=== PATIENT | female | born 1975 | race Caucasian/White ===

== ENCOUNTER 2016-11-11 18:02 | Emergency (ER) | payer BC ==
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
[2016-11-11] MEDS ORDERED: HYDROmorphone 1 MG/ML Syringe IM ONE (18:42)
[2016-11-11] MEDS ORDERED: Diphtheria,Pertussis(Acell),Tetanus Vaccine 0.5 ML Syringe IM ONE (20:01)
[2016-11-11 20:20] VITALS: BP 111/62
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
== END 2016-11-11 20:13 | disposition home or self-care (01) ==
LOC: MW.ED 18:02
DX: S82.141A Displaced bicondylar fracture of right tibia, initial encounter for closed fracture (principal); S80.219A Abrasion, unspecified knee, initial encounter; Z79.899 Other long term (current) drug therapy; Z88.0 Allergy status to penicillin; Z91.040 Latex allergy status; W17.89XA Other fall from one level to another, initial encounter; Z23 Encounter for immunization
CPT/HCPCS: 72170; 73562; 73590; 73700; 90471; 90715; 96374; 99284; G0390; J1170; 99281

== ENCOUNTER 2016-11-13 06:23 | Observation (INO) | payer BC ==
[2016-11-13] MEDS: Lactated Ringers 1,000 ML IV SCH ×2 (06:45→20:17)
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
[2016-11-13] MEDS ORDERED: Lidocaine 2% 5 ML SDV ONE (07:06)
[2016-11-13] MEDS ORDERED: Propofol 200 MG/20 ML SDV ONE (07:06)
[2016-11-13] MEDS ORDERED: Midazolam 1 MG/ML 2 ML SDV ONE (07:06)
[2016-11-13] MEDS ORDERED: fentaNYL 250 MCG/5 ML SDV ONE (07:06)
[2016-11-13] MEDS ORDERED: Ondansetron 4 MG/2 ML SDV ONE (07:06)
[2016-11-13] MEDS ORDERED: HYDROmorphone 2 MG/ML Syringe ONE (07:06)
[2016-11-13] MEDS ORDERED: Rocuronium 10 MG/ML 10 ML Syringe ONE (07:06)
[2016-11-13] MEDS ORDERED: Dexamethasone 4 MG/ML 5 ML MDV ONE (07:46)
[2016-11-13] MEDS ORDERED: diphenhydrAMINE 50 MG/ML SDV ONE (07:46)
[2016-11-13] MEDS ORDERED: Aluminum Hydroxide/Magnesium Hydroxide/Simethicone Susp 30 ML Cup PO PRN (08:23)
[2016-11-13] MEDS ORDERED: Ondansetron 4 MG/2 ML SDV IV PRN (08:23)
[2016-11-13] MEDS ORDERED: Ketorolac 30 MG/ML SDV IVPUSH PRN (08:23)
[2016-11-13] MEDS ORDERED: diphenhydrAMINE 25 MG Cap PO PRN (08:23)
[2016-11-13] MEDS ORDERED: Bisacodyl 10 MG Supp RECTAL PRN (08:23)
[2016-11-13] MEDS ORDERED: Albuterol 8 GM Inhaler INH PRN (08:25)
[2016-11-13] MEDS ORDERED: ePHEDrine 50 MG/ML SDV ONE (08:44)
[2016-11-13] MEDS ORDERED: Phenylephrine/Normal Saline 100 MCG/ML 10 ML Syringe ONE (08:44)
--- NOTE | 2016-11-13 10:42 | PCM.SN ---
- Free Text/Narrative Note: Pt appeared to have some Atrial Flutter on the monitor during the case. However , 12-lead performed in PACU shows NSR. Pt stable.
--- NOTE | 2016-11-13 10:49 | PCM.OPNOTE ---
- General Post-Op/Procedure Note Date of Surgery/Procedure: 11/13/16 Operative Procedure(s): ORIF R tibial plateau with bone graft Post-Op Diagnosis: R lateral tibial plateau fracture with diaphyseal extension Anesthesia Technique: General ET tube Primary Surgeon: Roseanna Abrams EBL in mLs: 50 Condition: Good Free Text/Narrative:: tt=84 min #[id number]
--- NOTE | 2016-11-13 11:13 | PCM.POSTAN ---
POST ANESTHESIA ASSESSMENT - MENTAL STATUS Mental Status: alert, oriented, somnolent (due to medication, but answering and responding to command and question) - RESPIRATORY Respiratory Status: respiratory rate WNL, airway patent, O2 saturation stable - CARDIOVASCULAR CV Status: pulse rate WNL, blood pressure stable - GASTROINTESTINAL GI Status: no symptoms - PAIN Pain Score: 5 (given fentanyl now) - POST OP HYDRATION Hydration Status: adequate & stable - OBSERVATIONS Free Text/Narrative:: To be monitored/observed for 24 hours - therefore to the floor.
[2016-11-13] MEDS: fentaNYL 100 MCG/2 ML SDV IVPUSH PRN ×2 (11:14→11:23)
[2016-11-13] MEDS ORDERED: Ketorolac 30 MG/ML SDV IVPUSH SCH (11:15)
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
--- NOTE | 2016-11-13 13:55 | CR ---
EXAMINATION: Right tibia HISTORY: ORIF COMPARISON: 11/11/2016 TECHNIQUE: 7 fluoroscopic images provided FINDINGS/IMPRESSION: There is screw and plate hardware fixating a comminuted proximal tibial plateau fracture. Overall the fragments appear in near-anatomic alignment. Bone graft material is noted.
[2016-11-13] MEDS: Docusate Sodium 100 MG Cap PO SCH ×2 (14:30→20:01)
[2016-11-13] MEDS: FLUoxetine 20 MG Cap PO SCH (14:30)
[2016-11-13] MEDS: Clindamycin Phosphate in D5W 600 MG in Premix Bag 50 BAG IV SCH ×8 (15:06→23:28)
[2016-11-13] MEDS: Morphine 10 MG/ML Syringe IVPUSH PRN ×3 (15:07→23:27)
[2016-11-13] MEDS: Acetaminophen/HYDROcodone 325-10 MG Tab PO PRN (16:09)
[2016-11-13] MEDS: Ketorolac 30 MG/ML SDV IVPUSH SCH (19:59)
[2016-11-14] MEDS: Acetaminophen/HYDROcodone 325-10 MG Tab PO PRN ×2 (00:07→08:10)
[2016-11-14] MEDS: Ketorolac 30 MG/ML SDV IVPUSH SCH ×2 (02:36→07:43)
[2016-11-14] MEDS: Morphine 10 MG/ML Syringe IVPUSH PRN (03:37)
[2016-11-14] MEDS: Lactated Ringers 1,000 ML IV SCH (07:46)
[2016-11-14] MEDS: FLUoxetine 20 MG Cap PO SCH (08:10)
[2016-11-14] MEDS: Docusate Sodium 100 MG Cap PO SCH (08:11)
--- NOTE | 2016-11-14 08:46 | PCM48HPAN ---
Post Anesthesia Note - EVALUATION WITHIN 48HRS OF ANESTHETIC Vital Signs in Normal Range: Yes Patient Participated in Evaluation: Yes Respiratory Function Stable: Yes Airway Patent: Yes Cardiovascular Function Stable: Yes Hydration Status Stable: Yes Pain Control Satisfactory: Yes Nausea and Vomiting Control Satisfactory: Yes Mental Status Recovered: Yes
[2016-11-14 09:19] VITALS: BP 99/58
--- NOTE | 2016-11-14 09:27 | PCM.SURGPN ---
- General Info Date of Service: 11/14/16 Date of Surgery/Procedure: 11/13/16 POD#: 1 Functional Status: Reports: pain controlled - Review of Systems General: Reports: No Symptoms Pulmonary: Denies: shortness of breath Cardiovascular: Denies: Chest Pain Gastrointestinal: Denies: Nausea Systems Review Comment:: pt resting comfortably in bed difficulty controlling pain overnight but better this AM has been OOB with crutches no specific concerns today - Patient Data Vitals - most recent: Last Vital Signs Temp 98.1 F 11/14/16 08:00 Pulse 68 11/14/16 08:00 Resp 16 11/14/16 08:00 BP 99/58 L 11/14/16 08:00 Pulse Ox 93 L 11/14/16 08:00 Weight - most recent: 64.86 kg I&O - last 24 hours: Intake & Output 11/13/16 11/14/16 11/14/16 22:59 06:59 14:59 Intake Total 1575 2040 Output Total 700 1500 Balance 875 540 Med Orders - Current: Current Medications Hydrocodone Bitart/Acetaminophen ([place] 325-10 Mg) 1 - 2 tab PO Q4H PRN PRN Reason: Pain Last Admin: 11/14/16 08:10 Dose: 2 tab Al Hydroxide/Mg Hydroxide (Mag-Al Plus) 30 ml PO Q4H PRN PRN Reason: indigestion Albuterol (Ventolin Hfa) 0 gm INH ASDIRECTED PRN PRN Reason: Dyspnea Bisacodyl (Dulcolax) 10 mg RECTAL DAILY PRN PRN Reason: Constipation Diphenhydramine HCl (Benadryl) 25 - 50 mg PO Q6H PRN PRN Reason: Itching Docusate Sodium (Colace) 100 mg PO BID [facility] Last Admin: 11/14/16 08:11 Dose: 100 mg Fentanyl (Sublimaze) 50 mcg IVPUSH .Q5MIN PRN PRN Reason: Pain Stop: 11/17/16 09:21 Last Admin: 11/13/16 11:23 Dose: 50 mcg Fluoxetine HCl (Prozac) 40 mg PO DAILY [facility] Last Admin: 11/14/16 08:10 Dose: 40 mg Clindamycin Phosphate 600 mg/ (Premix) 50 mls @ 100 mls/hr IV ONCALL [facility] Last Admin: 11/13/16 15:14 Dose: 100 mls/hr Lactated Ringer's (Ringers, Lactated) 1,000 mls @ 100 mls/hr IV ASDIRECTED [facility] Last Admin: 11/14/16 07:46 Dose: 100 mls/hr Ketorolac Tromethamine (Toradol) 30 mg IVPUSH Q6H [facility] Last Admin: 11/14/16 07:43 Dose: 30 mg Morphine Sulfate (Morphine) 1 - 3 mg IVPUSH Q3H PRN PRN Reason: Pain Last Admin: 11/14/16 03:37 Dose: 3 mg Ondansetron HCl (Zofran) 4 mg IV Q6HR PRN PRN Reason: NAUSEA/VOMITING Last Admin: 11/13/16 15:07 Dose: 4 mg Discontinued Medications Dexamethasone (Dexamethasone) Confirm Administered Dose 20 mg .ROUTE .STK-MED ONE Stop: 11/13/16 07:47 Diphenhydramine HCl (Benadryl) Confirm Administered Dose 50 mg .ROUTE .STK-MED ONE Stop: 11/13/16 07:47 Ephedrine Sulfate (Ephedrine Sulfate) Confirm Administered Dose 50 mg .ROUTE .STK-MED ONE Stop: 11/13/16 08:45 Fentanyl (Sublimaze) Confirm Administered Dose 250 mcg .ROUTE .STK-MED ONE Stop: 11/13/16 07:07 Hydromorphone HCl (Dilaudid) Confirm Administered Dose 2 mg .ROUTE .STK-MED ONE Stop: 11/13/16 07:07 Clindamycin Phosphate 600 mg/ (Premix) 50 mls @ 100 mls/hr IV Q8H [facility] Stop: 11/14/16 00:29 Last Admin: 11/13/16 23:28 Dose: 100 mls/hr Ketorolac Tromethamine (Toradol) 30 mg IVPUSH Q6H PRN PRN Reason: Pain Ketorolac Tromethamine (Toradol) 30 mg IVPUSH Q6H [facility] Last Admin: 11/13/16 14:25 Dose: 30 mg Lidocaine (Xylocaine-Mpf 2%) Confirm Administered Dose 5 ml .ROUTE .STK-MED ONE Stop: 11/13/16 07:07 Midazolam HCl (Versed 1 Mg/Ml) Confirm Administered Dose 2 mg .ROUTE .STK-MED ONE Stop: 11/13/16 07:07 Ondansetron HCl (Zofran) Confirm Administered Dose 4 mg .ROUTE .STK-MED ONE Stop: 11/13/16 07:07 Phenylephrine HCl (Phenylephrine In Ns 100 Mcg/Ml) Confirm Administered Dose 1 mg .ROUTE .STK-MED ONE Stop: 11/13/16 08:45 Propofol (Diprivan 20 Ml) Confirm Administered Dose 200 mg .ROUTE .STK-MED ONE Stop: 11/13/16 07:07 Rocuronium [place] (Zemuron) Confirm Administered Dose 100 mg .ROUTE .STK-MED ONE Stop: 11/13/16 07:07 - Exam Wound/Incisions: dressing dry and intact General: alert, oriented Cardiovascular: Regular Rate, Regular Rhythm Extremities: normal pulses, no calf tenderness, other (RLE - 1+ edema, at/ehl/ gastroc 5/5, dp 2+, sensation intact distally) Physical Findings Comment:: vss, afeb - Problem List Review Problem List Initiated/Reviewed/Updated: Yes - My Orders Last 24 Hours: Active Orders 24 hr Category Date Time Status Admission Status [Patient Status] [ADT] Routine ADT 11/13/16 11:40 Active EKG 12 Lead [EKG Documentation Completion] [RC] [facility] 11/13/16 09:20 Active Acetaminophen/HYDROcodone [[place] 325-10 MG] Med 11/13/16 09:00 Active 1 - 2 tab PO Q4H PRN Docusate Sodium [Colace] Med 11/13/16 09:00 Active 100 mg PO BID FLUoxetine [PROzac] Med 11/13/16 09:00 Active 40 mg PO DAILY Ketorolac [Toradol] Med 11/13/16 20:00 Active 30 mg IVPUSH Q6H Morphine Med 11/13/16 10:54 Active 1 - 3 mg IVPUSH Q3H PRN fentaNYL [Sublimaze] Med 11/13/16 09:20 Active 50 mcg IVPUSH .Q5MIN PRN Medication Orders Hydrocodone Bitart/Acetaminophen ([place] 325-10 Mg) 1 - 2 tab PO Q4H PRN PRN Reason: Pain Last Admin: 11/14/16 08:10 Dose: 2 tab Admin: 11/14/16 00:07 Dose: 2 tab Admin: 11/13/16 16:09 Dose: 2 tab Al Hydroxide/Mg Hydroxide (Mag-Al Plus) 30 ml PO Q4H PRN PRN Reason: indigestion Albuterol (Ventolin Hfa) 0 gm INH ASDIRECTED PRN PRN Reason: Dyspnea Bisacodyl (Dulcolax) 10 mg RECTAL DAILY PRN PRN Reason: Constipation Diphenhydramine HCl (Benadryl) 25 - 50 mg PO Q6H PRN PRN Reason: Itching Docusate Sodium (Colace) 100 mg PO BID [facility] Last Admin: 11/14/16 08:11 Dose: 100 mg Admin: 11/13/16 20:01 Dose: 100 mg Admin: 11/13/16 14:30 Dose: Fentanyl (Sublimaze) 50 mcg IVPUSH .Q5MIN PRN PRN Reason: Pain Stop: 11/17/16 09:21 Last Admin: 11/13/16 11:23 Dose: 50 mcg Admin: 11/13/16 11:14 Dose: 50 mcg Fluoxetine HCl (Prozac) 40 mg PO DAILY [facility] Last Admin: 11/14/16 08:10 Dose: 40 mg Admin: 11/13/16 14:30 Dose: Clindamycin Phosphate 600 mg/ (Premix) 50 mls @ 100 mls/hr IV ONCALL [facility] Last Admin: 11/13/16 15:14 Dose: 100 mls/hr Infusion: 11/13/16 15:14 Dose: 100 mls/hr Admin: 11/13/16 15:06 Dose: 100 mls/hr Lactated Ringer's (Ringers, Lactated) 1,000 mls @ 100 mls/hr IV ASDIRECTED [facility] Last Admin: 11/14/16 07:46 Dose: 100 mls/hr Infusion: 11/14/16 06:17 Dose: 100 mls/hr Admin: 11/13/16 20:17 Dose: 100 mls/hr Infusion: 11/13/16 16:45 Dose: 100 mls/hr Admin: 11/13/16 06:45 Dose: 100 mls/hr Ketorolac Tromethamine (Toradol) 30 mg IVPUSH Q6H [facility] Last Admin: 11/14/16 07:43 Dose: 30 mg Admin: 11/14/16 02:36 Dose: 30 mg Admin: 11/13/16 19:59 Dose: 30 mg Morphine Sulfate (Morphine) 1 - 3 mg IVPUSH Q3H PRN PRN Reason: Pain Last Admin: 11/14/16 03:37 Dose: 3 mg Admin: 11/13/16 23:27 Dose: 3 mg Admin: 11/13/16 19:17 Dose: 3 mg Admin: 11/13/16 15:07 Dose: 3 mg Ondansetron HCl (Zofran) 4 mg IV Q6HR PRN PRN Reason: NAUSEA/VOMITING Last Admin: 11/13/16 15:07 Dose: 4 mg - Assessment Assessment (Free Text/Narrative):: POD#1 ORIF R tib plateau - Plan Plan (Free Text/Narrative):: will d/ch to home today see d/ch instructions, meds
== END 2016-11-14 10:40 | disposition home or self-care (01) ==
LOC: MW.SDS 06:23 → MW.MS 11:40
PROVIDERS: ADMIT Orthopaedic Surgery; ATTEND Orthopaedic Surgery
PROC: 0QSG04Z Reposition Right Tibia with Internal Fixation Device, Open Approach (ICD-10-PCS; principal; 2016-11-13)
DX: S82.121A Displaced fracture of lateral condyle of right tibia, initial encounter for closed fracture (principal); S82.201A Unspecified fracture of shaft of right tibia, initial encounter for closed fracture; D64.9 Anemia, unspecified; F41.9 Anxiety disorder, unspecified; J45.909 Unspecified asthma, uncomplicated; K58.9 Irritable bowel syndrome, unspecified; F32.9 Major depressive disorder, single episode, unspecified; M79.7 Fibromyalgia; Z87.891 Personal history of nicotine dependence; Z87.442 Personal history of urinary calculi; Z88.0 Allergy status to penicillin; Z91.040 Latex allergy status; Z79.899 Other long term (current) drug therapy; Z98.51 Tubal ligation status; Z90.710 Acquired absence of both cervix and uterus; Z90.5 Acquired absence of kidney; Z90.89 Acquired absence of other organs
CPT/HCPCS: 27535; 76001; 93005; 97161; A9270; C1713; C1776; J1100; J1170; J1200; J1885; J2250; J2270; J2405; J3010; J7120; 01392; G0378; J2704

== ENCOUNTER → 2016-11-24 | Outpatient (CLI) | payer BC ==
--- NOTE | 2016-11-24 13:44 | CR ---
EXAMINATION: Right knee HISTORY: Fracture of the condyle COMPARISON: CT dated 11/11/2016 TECHNIQUE: AP and lateral views of the right knee. FINDINGS: There is screw and plate hardware fixating a tibial plateau and proximal tibial fracture i n near-anatomic alignment. There is a trace suprapatellar joint effusion. The remaining osseous stru ctures and joint spaces appear intact. Bone mineralization is otherwise normal. IMPRESSION: Stable hardware fixation of a proximal tibial fracture.
== END ==
LOC: MW.CHORTHO 07:43
PROVIDERS: ATTEND Physician Assistant
DX: S82.121A Displaced fracture of lateral condyle of right tibia, initial encounter for closed fracture (principal); Z96.7 Presence of other bone and tendon implants
CPT/HCPCS: 73560-26-RT; 73560-RT

== ENCOUNTER 2017-05-05 06:19 | Day surgery (SDC) | payer BC ==
[~2017-05-05 06:19] MED LIST: Lactated Ringers 1,000 ML IV SCH
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
[2017-05-05] MEDS ORDERED: Lidocaine 2% 5 ML SDV ONE (07:36)
[2017-05-05] MEDS ORDERED: Propofol 200 MG/20 ML SDV ONE (07:37)
[2017-05-05] MEDS ORDERED: fentaNYL 100 MCG/2 ML SDV ONE (07:37)
[2017-05-05] MEDS ORDERED: Midazolam 1 MG/ML 2 ML SDV ONE (07:37)
[2017-05-05] MEDS ORDERED: HYDROmorphone 2 MG/ML Syringe ONE (07:38)
[2017-05-05] MEDS ORDERED: Lidocaine 1% 20 ML MDV ONE (07:39)
[2017-05-05] MEDS ORDERED: Bupivacaine 25%/EPINEPHrine/PF 30 ML ONE (07:39)
[2017-05-05] MEDS ORDERED: Clindamycin Phosphate in D5W 600 MG in Premix Bag 1 BAG IV SCH ×2 (08:00)
[2017-05-05] MEDS ORDERED: Acetaminophen/HYDROcodone 325-5 MG Tab PO PRN (08:00)
[2017-05-05] MEDS ORDERED: ePHEDrine 50 MG/ML SDV ONE (08:45)
[2017-05-05] MEDS ORDERED: fentaNYL 100 MCG/2 ML SDV IVPUSH PRN (09:12)
[2017-05-05] MEDS ORDERED: HYDROmorphone 2 MG/ML Syringe IVPUSH ONE (09:14)
--- NOTE | 2017-05-05 09:43 | PCM.OPNOTE ---
- General Post-Op/Procedure Note Date of Surgery/Procedure: 05/05/17 Operative Procedure(s): 1. R knee arthroscopy with PMM. 2. HWR R proximal tibia Post-Op Diagnosis: 1. R knee medial meniscus tear. 2. Painful retained HW R tibia Anesthesia Technique: General ET Tube Primary Surgeon: Roseanna Abrams Commodities Clerk: Yola Ayers Commodities Clerk: Elijah Nix in mLs: 10 Condition: Good Free Text/Narrative:: tt=53 min #[id number]
--- NOTE | 2017-05-05 10:11 | PCM.POSTAN ---
POST ANESTHESIA ASSESSMENT - MENTAL STATUS Mental Status: Alert, Oriented - RESPIRATORY Respiratory Status: Respiratory Rate WNL, Airway Patent, O2 Saturation Stable - CARDIOVASCULAR CV Status: Pulse Rate WNL, Blood Pressure Stable - GASTROINTESTINAL GI Status: No Symptoms - POST OP HYDRATION Hydration Status: Adequate & Stable
[2017-05-05 13:24] VITALS: BP 110/65
--- NOTE | 2017-05-05 13:38 | OR ---
SURGEON: Roseanna Abrams MD DATE OF PROCEDURE: 05/05/2017 PREOPERATIVE DIAGNOSES: 1. Right knee pain. 2. Painful retained hardware, right proximal tibia, status post open reduction and internal fixation of right tibial plateau fracture. POSTOPERATIVE DIAGNOSES: 1. Right knee medial meniscus tear. 2. Degenerative joint disease, right knee. 3. Painful retained hardware, right proximal tibia. PROCEDURES: 1. Right knee arthroscopy with partial medial meniscectomy. 2. Hardware removal, right tibia, (deep implant). ASSISTANTS: 1. Yola Ayers PA-C. 2. Elijah Nix MD, PGY-2. ANESTHESIA: General. ESTIMATED BLOOD LOSS: 10 mL. TOURNIQUET TIME: 53 minutes. COMPLICATIONS: None. DVT PROPHYLAXIS: Not indicated. IMPLANTS USED: None. BRIEF HISTORY: Krzysztof is a 41-year-old female who sustained a right tibial plateau and tibial shaft fracture. She subsequently underwent open reduction and internal fixation. She went on to heal the fracture well, however, has continued to have some pain in her knee along with pain in the tibia from her retained hardware. Due to her lack of response to conservative treatment, I did recommend surgical intervention. The risks and goals of the procedure were discussed with the patient and were documented preoperatively. She agreed to proceed. DESCRIPTION OF PROCEDURE: The patient was properly identified and brought to the operating room. She was transferred from the OR cart and placed on the operating room table in a supine position. General anesthesia was administered. After adequate anesthesia was obtained, a well-padded tourniquet was applied to the right lower extremity. The right lower extremity was then prepped in standard fashion using ChloraPrep solution. It was then sterilely draped. A time-out was performed to ensure correct site and procedure. Preoperative antibiotics were given. The surgical site had been marked preoperatively. An Esmarch was used to exsanguinate the right lower extremity, and the tourniquet was inflated to 250 mmHg. A lateral portal arthrotomy was established. Blunt trocar and cannula were introduced into the suprapatellar pouch. Camera, inflow, and outflow were assembled. The suprapatellar pouch showed no signs of synovitis. The patellofemoral joint was then visualized. She had an area of chondromalacia along the lateral aspect of the patella. The trochlear groove showed no degenerative findings. The patella appeared to track centrally. I then extended down the lateral and medial gutter. No loose bodies were identified. I then entered the medial compartment. A medial portal arthrotomy was established. A probe was inserted. The meniscus was probed and found to have a degenerative tear along the central portion. This was resected with a combination of biters and shaver. The remainder of the joint surfaces appeared intact with no degenerative changes. I then entered the notch. Both the ACL and PCL were visualized and probed and found to be intact. I finally entered the lateral compartment. The site of the tibial plateau fracture was visualized. She did have some full-thickness fissures along the tibial plateau, however, overall, the joint surfaces appeared symmetric. The fissures were probed and appeared to be full thickness. A shaver was used to perform a chondroplasty to remove any loose fragments. The meniscus was probed and found to be intact. No degenerative changes were noted along the lateral femoral condyle. The patellofemoral joint was again visualized. The area of chondromalacia measured approximately 5 mm x 5 mm and no loose fragments were noted. Instruments were then removed from the knee. The portal sites were closed with 3-0 nylon. We then turned our attention to the tibial plateau. An incision was made over the site of the previous incision. The subcutaneous tissues were dissected down to the level of the plate. The screws and plate were removed without difficulty. The wound was then copiously irrigated with saline solution. The deep tissues were reapproximated with 0 Vicryl. The subcutaneous tissues were closed with 2-0 Vicryl. The skin was closed with gisela. 1% lidocaine was used to anesthetize the area. Xeroform gauze was placed over the wounds and a bulky dressing was applied. At the completion of the case, she was turned over to Dr. Eldridge for completion of her portion of the procedure. BRENNEN / CLAY /[id number]
--- NOTE | 2017-05-05 15:21 | CR ---
EXAMINATION: Right tibia and fibula HISTORY: Hardware removal COMPARISON: 10/08/2016 TECHNIQUE: 4 fluoroscopic images provided FINDINGS/IMPRESSION: Operative control films demonstrate removal of the previously demonstrated screw and plate hardware fixating the tibia.
--- NOTE | 2017-05-06 15:17 | PCM.OPNOTE ---
- General Post-Op/Procedure Note Date of Surgery/Procedure: 05/05/17 Operative Procedure(s): excision of left thumb mass 1cm2 Pre Op Diagnosis: left thumb mass Post-Op Diagnosis: Same Anesthesia Technique: General LMA, Local Primary Surgeon: Tierra Eldridge Stamp Redemption Clerk: Dana Covington Complications: None Condition: Good
--- NOTE | 2017-05-06 20:05 | OR ---
SURGEON: CARMEN GALLAGHER MD DATE OF PROCEDURE: 05/05/2017 PREOPERATIVE DIAGNOSIS: Left thumb mass. POSTOPERATIVE DIAGNOSIS: Left thumb mass. PROCEDURE: Excision of left thumb mass, 1 cm, extending down to the tendon area. BROOMCORN SCRAPER: DANYA Zarate. INDICATIONS: Ms. Trejo is a 41-year-old female with a left thumb mass that is growing and causing pain. It does impinge upon the digital nerve and cause problems. Risks and benefits of removal were discussed with her and she was in agreement to proceed. Risks were including, but not limited to, bleeding, infection, damage to underlying or overlying structures, possible need for future interventions, and possible scarring. PROCEDURE IN DETAIL: After informed consent was obtained and placed on the chart, and Dr. Abrams had completed her portion of the procedure, we entered and completed a time-out to confirm side and site. Attention was then paid to dissection of the left thumb. The arm was exsanguinated and tourniquet was insufflated to 200 mmHg. A curvilinear incision was made along the lateral margin of the thumb and dissection was carried circumferentially around the lesion itself, taking care to protect all surrounding structures. The lesion was exposed and the digital neurovascular bundle ran on top of this, it was preserved and retracted laterally. The lesion was excised en bloc and though it does have the appearance of the yellow fat of a giant cell, it does also has some calcifications and a bit atypical and that is why it was sent for pathology. Once adequately excised, the wound was hemostased and the skin was closed using a 5-0 nylon stitch in a horizontal mattress fashion. Local anesthetic was infiltrated into the area for pain control. The patient tolerated this well. All counts and needles were correct at the end of the case. FOLLOWUP INSTRUCTIONS: The patient will see us in clinic in 10 to 14 days or sooner if any problems, questions, or concerns. HEGGTHE / MODL /[id number]
== END 2017-05-05 12:35 | disposition home or self-care (01) ==
LOC: MW.SDS 06:19
PROVIDERS: ATTEND Plastic Surgery
DX: D48.1 Neoplasm of uncertain behavior of connective and other soft tissue (principal); M65.861 Other synovitis and tenosynovitis, right lower leg; M23.331 Other meniscus derangements, other medial meniscus, right knee; M22.41 Chondromalacia patellae, right knee; T84.84XA Pain due to internal orthopedic prosthetic devices, implants and grafts, initial encounter; M17.11 Unilateral primary osteoarthritis, right knee; F41.9 Anxiety disorder, unspecified; J45.909 Unspecified asthma, uncomplicated; K58.9 Irritable bowel syndrome, unspecified; G43.909 Migraine, unspecified, not intractable, without status migrainosus; F32.9 Major depressive disorder, single episode, unspecified; M79.7 Fibromyalgia; Z87.442 Personal history of urinary calculi; Z87.891 Personal history of nicotine dependence; Z88.0 Allergy status to penicillin; Z91.040 Latex allergy status; Z79.899 Other long term (current) drug therapy; Z98.51 Tubal ligation status; Z90.5 Acquired absence of kidney; Z90.710 Acquired absence of both cervix and uterus; Z90.89 Acquired absence of other organs; Z98.890 Other specified postprocedural states
CPT/HCPCS: 20680; 26116; 29881; 76000; 88300; 88304; 88305; A9270; J1170; J2250; J3010; J7120; 01400; J2704

== ENCOUNTER 2020-10-17 11:47 | Day surgery (SDC) | payer BC ==
[2020-10-17] MEDS ORDERED: Betamethasone Acetate/Betamethasone Sod Phosphate 30 MG/5 ML MDV EPIDUR ONE (13:00)
[2020-10-17] MEDS ORDERED: Lidocaine 2% 5 ML SDV INJECT ONE (13:00)
[2020-10-17] MEDS ORDERED: Ropivacaine 0.5% 5 MG/ML 30 ML SDV INJECT ONE (13:00)
[2020-10-17] MEDS ORDERED: Iopamidol 200-M 10 ML vial ITHECAL ONE (13:00)
--- NOTE | 2020-10-17 21:10 | OR ---
SURGEON: Alethea Driscoll D.O. DATE OF PROCEDURE: 10/17/2020 PRIMARY SURGEON: Alethea Driscoll D.O. DIRECTOR OF STRATEGIC PROGRAMS: OR staff present: 1. Segun Dixon RN. 2. Segun Snider RT. 3. Pauline Law RN. WOUND CLASS: I. PREOPERATIVE DIAGNOSES: 1. Lumbar degenerative disk disease, L4-L5, L5-S1. 2. L4-L5-S1 radiculopathy. 3. Lumbar spondylosis. 4. Chronic low back pain. POSTOPERATIVE DIAGNOSES: 1. Lumbar degenerative disk disease, L4-L5, L5-S1. 2. L4-L5-S1 radiculopathy. 3. Lumbar spondylosis. 4. Chronic low back pain. PROCEDURES PERFORMED: 1. Right S1 transforaminal epidural steroid injection. 2. Fluoroscopic guidance for needle placement. 3. Local with oral Valium for sedation. SCREENING QUESTIONS: The patient answered "no" to all of the following questions: 1. Are you allergic to iodine, Betadine or latex? 2. Do you have a bleeding disorder? 3. Do you have any joint replacements, heart valve replacements, or a pacemaker? 4. Are you allergic to anti-inflammatories or blood thinners? 5. Do you have any current local or systemic infections? DESCRIPTION OF PROCEDURE: The patient had the procedure thoroughly explained including risks, benefits and alternatives. Consent was signed in my clinic indicating understanding and willingness to proceed. The patient presented to [facility] [place] where the patient was escorted to the dressing room to disrobe and change into a hospital gown. Preoperative vital signs were taken and stable. The patient reported that Valium was taken prior to the procedure. The patient was brought to the procedure room and placed in the prone position on the table. A pillow was placed under the abdomen in order to flatten the lumbar lordosis. The back was prepped with ChloraPrep and sterilely draped. All personnel in the operating room were dressed in appropriate attire including surgical scrubs, head and shoe covers. This was to ensure sterility while in the treatment room. During the time fluoroscopy was in use, all personnel in the operating room wore lead durbin with thyroid collars. Sterile technique was used during the procedure. The fluoroscope was placed for the right S1 transforaminal epidural steroid injection. There was no sign of infection at the skin site for needle insertion. The skin was anesthetized with 2% lidocaine with a 27 gauge 1-1/2 inch needle. Then a 22 gauge 3-1/2 inch spinal needle, advanced to the right S1 lateral foramen. Under direct fluoroscopic guidance needle position was verified in three views; AP, oblique and lateral, with 0.2 cubic centimeters increments of Isovue- 200 dye and adequate flow up to the L4-5 epidural space. No intravascular flow pattern was observed under live fluoroscopy. Then 12 milligrams of Celestone and local was slowly injected after negative aspiration of heme, cerebrospinal fluid and no paresthesias were noted. The needle was cleared prior to removal from the skin. No adverse reactions were noted. The patient was brought to the recovery room awake and in good condition by my staff. The patient was monitored and discharge instructions were given after a brief stay in the recovery area. Both oral and written discharge and follow up instructions were given. The patient will follow up in the clinic in 3-4 weeks post procedure to evaluate the efficacy. The patient verbalized understanding including understanding of those signs and symptoms that would require emergency care and knows how to contact the office if there are any problems or questions in the meantime. PREOPERATIVE PAIN: 8 out of 10. POSTOPERATIVE PAIN: 6/10. PLAN: Followup in the pain clinic in 1 month. KATHLEEN / CLAY /[id number]
== END 2020-10-17 14:02 | disposition home or self-care (01) ==
LOC: MW.SDS 11:47
PROVIDERS: ATTEND Anesthesiology
DX: G89.29 Other chronic pain (principal); M51.16 Intervertebral disc disorders with radiculopathy, lumbar region; M51.17 Intervertebral disc disorders with radiculopathy, lumbosacral region; M47.26 Other spondylosis with radiculopathy, lumbar region; M51.34 Other intervertebral disc degeneration, thoracic region; J45.909 Unspecified asthma, uncomplicated; Z88.0 Allergy status to penicillin; Z91.040 Latex allergy status; Z79.899 Other long term (current) drug therapy; Z98.890 Other specified postprocedural states; Z87.891 Personal history of nicotine dependence

== ENCOUNTER 2020-11-14 12:52 | Day surgery (SDC) | payer BC ==
[2020-11-14] MEDS ORDERED: Iopamidol 200-M 10 ML vial ITHECAL ONE (13:00)
[2020-11-14] MEDS ORDERED: Ropivacaine 0.5% 5 MG/ML 30 ML SDV INJECT ONE (13:00)
[2020-11-14] MEDS ORDERED: Lidocaine 2% 5 ML SDV INJECT ONE (13:00)
[2020-11-14] MEDS ORDERED: Betamethasone Acetate/Betamethasone Sod Phosphate 30 MG/5 ML MDV EPIDUR ONE (13:00)
--- NOTE | 2020-11-14 23:00 | OR ---
SURGEON: Alethea Driscoll D.O. DATE OF PROCEDURE: 11/14/2020 PRIMARY SURGEON: Alethea Driscoll D.O. FARM TRACTOR OPERATOR: OR staff present: 1. David Parker RN. 2. Dina Palma RN. 3. Segun Snider RT. WOUND CLASS: I. PREOPERATIVE DIAGNOSES: 1. Lumbar herniated disk, L4-5, L5-S1. 2. Chronic low back pain with right L5-S1 radiculopathy. POSTOPERATIVE DIAGNOSES: 1. Lumbar herniated disk, L4-5, L5-S1. 2. Chronic low back pain with right L5-S1 radiculopathy. PROCEDURES PERFORMED: 1. Right L4 transforaminal epidural steroid injection. 2. Right L5 transforaminal epidural steroid injection. 3. Fluoroscopic guidance for needle placement. 4. Local with oral Valium for sedation. SCREENING QUESTIONS: The patient answered "no" to all of the following questions: 1. Are you allergic to iodine, Betadine or latex? 2. Do you have a bleeding disorder? 3. Do you have any joint replacements, heart valve replacements, or a pacemaker? 4. Are you allergic to anti-inflammatories or blood thinners? 5. Do you have any current local or systemic infections? DESCRIPTION OF PROCEDURE: The patient had the procedure thoroughly explained including risks, benefits and alternatives. Consent was signed in my clinic indicating understanding and willingness to proceed. The patient presented to [facility] [place] where the patient was escorted to the dressing room to disrobe and change into a hospital gown. Preoperative vital signs were taken and stable. The patient reported that Valium was taken prior to the procedure. The patient was brought to the procedure room and placed in the prone position on the table. A pillow was placed under the abdomen in order to flatten the lumbar lordosis. The back was prepped with ChloraPrep and sterilely draped. All personnel in the operating room were dressed in appropriate attire including surgical scrubs, head and shoe covers. This was to ensure sterility while in the treatment room. During the time fluoroscopy was in use, all personnel in the operating room wore lead durbin with thyroid collars. Sterile technique was used during the procedure. The fluoroscope was placed for the right L4 transforaminal epidural steroid injection. There was no sign of infection at the skin site for needle insertion. The skin was anesthetized with 2% lidocaine with a 27 gauge 1-1/2 inch needle. Then a 22 gauge 3-1/2 inch spinal needle, advanced to the right L4 and L5. Under direct fluoroscopic guidance needle position was verified in three views; AP, oblique and lateral, with 0.2 cubic centimeters increments of Isovue-200 dye. No intravascular flow pattern was observed under live fluoroscopy. Then 6 milligrams of Celestone and local was slowly injected after negative aspiration of heme, cerebrospinal fluid and no paresthesias were noted. The needle was cleared prior to removal from the skin. The procedure was repeated as above for a right L5 transforaminal epidural steroid injection. No adverse reactions were noted. The patient was brought to the recovery room awake and in good condition by my staff. The patient was monitored and discharge instructions were given after a brief stay in the recovery area. Both oral and written discharge and follow up instructions were given. The patient will follow up in the clinic in 3-4 weeks post procedure to evaluate the efficacy. The patient verbalized understanding including understanding of those signs and symptoms that would require emergency care and knows how to contact the office if there are any problems or questions in the meantime. PREOPERATIVE PAIN: 5/10. POSTOPERATIVE PAIN: 4/10. PLAN: Follow up in the pain clinic in 3 weeks. KATHLEEN / CLAY /[id number] BENJAMIN
== END 2020-11-14 14:03 ==
LOC: MW.SDS 12:52
PROVIDERS: ATTEND Anesthesiology
DX: G89.4 Chronic pain syndrome (principal); M51.16 Intervertebral disc disorders with radiculopathy, lumbar region; M51.17 Intervertebral disc disorders with radiculopathy, lumbosacral region; M47.26 Other spondylosis with radiculopathy, lumbar region; M79.18 Myalgia, other site; G43.909 Migraine, unspecified, not intractable, without status migrainosus; M47.24 Other spondylosis with radiculopathy, thoracic region; M51.14 Intervertebral disc disorders with radiculopathy, thoracic region; Z88.0 Allergy status to penicillin; Z91.040 Latex allergy status; Z79.899 Other long term (current) drug therapy; Z98.890 Other specified postprocedural states; Z87.891 Personal history of nicotine dependence

== ENCOUNTER 2022-12-24 10:12 | Day surgery (SDC) | payer BC ==
[~2022-12-24 10:12] MED LIST changes: -Lactated Ringers 1,000 ML IV SCH; +Sodium Chloride 0.9% 10 ML Syringe FLUSH PRN; +Sodium Chloride 0.9% 2.5 ML Syringe FLUSH PRN; +Sodium Chloride 0.9% 20 ML SDV IV PRN
[2022-12-24] MEDS: Lactated Ringers 1,000 ML IV SCH ×2 (10:41→11:07)
[2022-12-24] MEDS ORDERED: Propofol 200 MG/20 ML SDV ONE (11:06)
[2022-12-24 12:26] VITALS: BP 104/78; PULSE 67
== END 2022-12-24 12:07 | disposition home or self-care (01) ==
LOC: MW.SDS 10:12
PROVIDERS: ATTEND Surgery
DX: K58.0 Irritable bowel syndrome with diarrhea (principal); R19.4 Change in bowel habit; F41.9 Anxiety disorder, unspecified; G89.4 Chronic pain syndrome; J45.909 Unspecified asthma, uncomplicated; M79.7 Fibromyalgia; G43.909 Migraine, unspecified, not intractable, without status migrainosus; F32.A Depression, unspecified; M54.9 Dorsalgia, unspecified; M54.2 Cervicalgia; Z88.0 Allergy status to penicillin; Z91.040 Latex allergy status; Z79.899 Other long term (current) drug therapy; Z90.710 Acquired absence of both cervix and uterus; Z98.51 Tubal ligation status; Z87.891 Personal history of nicotine dependence
CPT/HCPCS: 45380; J2704; J7120; 00811